=== PATIENT | female | born 1975 | race Caucasian/White ===

== ENCOUNTER 2017-01-20 18:07 | Emergency (ER) | payer MEDICARE, MEDICAID ==
[~2017-01-20] VITALS: Ht 180.3 cm; Wt 113.0 kg
[~2017-01-20 18:07] MED LIST: BUSP5 PO; LORTA5 PO; OMEP20TA39 PO
[2017-01-20 18:12] VITALS: BP 122/82; PULSE 93; RESP 16; TEMP 98.2; O2SAT 98
[2017-01-20] MEDS ORDERED: HYDR-3288 PO (18:21)
[2017-01-20] MEDS ORDERED: OMEP40CA2 PO (18:21)
[2017-01-20] MEDS ORDERED: cholesterol med (18:21)
--- NOTE | 2017-01-20 18:56 | PD ---
HPI Chief Complaint: Cold / Flu Symptoms Time Seen by Provider: 18:23 Travel History International Travel<30 days: No Contact w/Intl Traveler<30days: No Traveled to known affect area: No History of Present Illness HPI 41-year-old female presents to the emergency room for evaluation of nonproductive cough, malaise, and bilateral ear pain. Patient has had cough for the past 2 months. She went to her primary care physician and was put on Tessalon Perles, steroids, and an antibiotic that she believes was amoxicillin and told to follow-up with the casing worker. Patient states she took 500 mg blue tablet once daily for 5 days. States she finished the antibiotic yesterday and steroids today. States she seems to be getting worse. Cough was initially productive but has become nonproductive recently. Patient is concerned because her house recently tested positive for mold. States the mold specialist told her the outside of her house registered as 11 but the inside of her house was over 100. PFSH Past Medical History Asthma: No Autoimmune Disease: No Anxiety: No Depression: Yes Heart Rhythm Problems: No Cancer: No Cardiovascular Problems: No High Cholesterol: Yes Chemotherapy: No Chest Pain: Yes Congestive Heart Failure: No COPD: No Cerebrovascular Accident: No Diabetes: No Diminished Hearing: No Endocrine: Yes Gastrointestinal Disorders: Yes GERD: Yes Glaucoma: No Genitourinary: Yes (MUST SELF CATH DUE TO SEVERE SPINAL DAMAGE) Headaches: Yes Hepatitis: No Hiatal Hernia: No Hypertension: Yes Immune Disorder: No Implanted Vascular Access Dvce: Yes Kidney Stones: Yes Medical other: Yes (ELEVATED CHOLESTEROL/ CHRONIC BACK PAIN rheumatoid arthritis) Musculoskeletal: Yes (DEGENERATIVE DISC DISEASE) Neurologic: Yes (DDD WITH MULTIPLE SURGERIES AND IMPLANTS TO STABILIZE HER SPINE) Psychiatric: No Reproductive: Yes (HYSTERECTOMY R/T CYSTS ON OVARIES) Respiratory: No Immunizations Current: Yes Migraines: Yes Radiation Therapy: No Renal Failure: No Sickle Cell Disease: No Sleep Apnea: No Thyroid Disease: Yes (HYPO BEING WATCHED) Ulcer: No ?: Not : 2 Para: 2 Ovarian Cysts: Yes Past Surgical History Abdominal Surgery: Yes (RIGHT INGUINAL HERNIA) AICD: No Appendectomy: Yes (2003) Arteriovenous Shunt: No Body Medical Devices: SPINAL PORT STIMULATOR ----AND----RODS IN HER SPINE TO SUPPORT IT Cardiac Surgery: No Cholecystectomy: Yes Ear Surgery: No Endocrine Surgery: No Eye Surgery: No Genitourinary Surgery: No Gynecologic Surgery: Yes (HYSTERECTOMY) Hysterectomy: Yes Insulin Pump: No Joint Replacement: Yes (SPINAL RODS ) Oral Surgery: No Pacemaker: No Thoracic Surgery: Yes (TUMOR REMOVED LEFT CHEST) Other Surgery: Yes (APR 02--"SPINAL CORD STIUMULATOR", LEFT UPPER ABD LIPOMA REMOVED) Social History Alcohol Use: No Tobacco Use: No Substance Use: No Allergies-Medications (Allergen,Severity, Reaction): Coded Allergies: diatrizoate meglumine (Unverified Allergy, Severe, IVP DYE HIVES, SOB, ) gadobenic acid (Unverified Allergy, Severe, IVP DYE HIVES, SOB, 01/20/17) gadodiamide (Unverified Allergy, Severe, IVP DYE HIVES, SOB, 01/20/17) gadoteridol (Unverified Allergy, Severe, IVP DYE HIVES, SOB, 01/20/17) hydromorphone (Unverified Allergy, Severe, HIVES, 01/20/17) iodixanol (Unverified Allergy, Severe, IVP DYE HIVES, SOB, 01/20/17) iohexol (Unverified Allergy, Severe, IVP DYE HIVES, SOB, 01/20/17) shellfish derived (Unverified Allergy, Severe, SWELLING, 01/20/17) Reported Meds & Prescriptions Reported Meds & Active Scripts Active Reported [cholesterol med] [place] (Hydrocodone-Acetaminophen) 7.5-325 mg Tab 2 Tab PO Q4H PRN Omeprazole 40 Mg Cap 40 Mg PO DAILY Hydrocodone/Acetaminophen 5 mg/325 mg 1 Tab 1 Tab PO BID PRN Buspar 5 Mg Tab (Buspirone HCl) 5 Mg Tab 5 Mg PO TID Hm Omeprazole (Omeprazole) 20 Mg Tab 40 Mg PO BID Review of Systems Except as stated in HPI: all other systems reviewed are Neg Physical Exam Narrative GENERAL: Well-nourished, well-developed female in no acute distress. Afebrile. Ambulatory. Coughing frequently in the emergency room. SKIN: Focused skin assessment warm/dry. HEAD: Normocephalic. EYES: No scleral icterus. No injection or drainage. ENT: Mucosa pink and moist. Mild erythema of pharynx without significant edema or exudates. No uvular edema. No uvular, palatal, or tonsillar deviation. Airway patent. Nasal turbinates appear normal without nasal blood, purulent drainage or septal hematoma. EARS: Bilateral pinnae and external canals appear within normal limits. Bilateral tympanic membranes without erythema or perforation. There is bilateral dullness. NECK: Supple, trachea midline. No JVD or lymphadenopathy. CARDIOVASCULAR: Regular rate and rhythm without murmurs, gallops, or rubs. RESPIRATORY: Breath sounds equal bilaterally. No accessory muscle use. No crackles, rales, wheezes, or rhonchi. Data Data Last Documented VS Vital Signs Date Time Temp Pulse Resp B/P (MAP) Pulse Ox O2 Delivery O2 Flow Rate FiO2 01/20/17 18:12 98.2 93 16 122/82 (95) 98 Orders Orders Chest, Pa & Lat (01/20/17 ) [facility] Medical Decision Making Medical Screen Exam Complete: Yes Emergency Medical Condition: Yes Medical Record Reviewed: Yes Differential Diagnosis Bronchitis, pneumonia, fungal infection Narrative Course 41-year-old female presents to the emergency room for evaluation of chronic cough for the past 2 months. Patient just finished a course of antibiotics and steroids but reports worsening of symptoms. She believes the antibiotic was amoxicillin but reports the pills were 500 mg oval, blue tablets that she took once daily for 5 days; perhaps Flagyl? Cough is nonproductive. No fevers or chills. She is afebrile and well-appearing in the emergency room. Vital signs stable. Pulse ox 98% on room air. Coughing frequently but it is nonproductive. Lung sounds clear and equal bilaterally. Dullness to bilateral tympanic membranes but no evidence of acute infection. Patient is concerned because her house recently tested very high for mold spores. Chest x-ray shows no cardiopulmonary disease. I see no indication for more antibiotics at this time. Patient was told to follow-up with the casing worker. She'll be discharged with prescription for guaifenesin with codeine and told to take over- the-counter Zyrtec and omeprazole to account for other possible causes chronic cough. She understands and agrees to plan. Diagnosis Primary Impression: Chronic cough Additional Instructions: Rest and drink plenty of fluids. Take cough medication at night, as needed for cough. This medication will make you drowsy. Take Zyrtec and omeprazole as directed on the box. Follow-up with a primary care physician and casing worker. Spend least amount of time as possible in house until mold is cleared. Return to the emergency room for worsening symptoms. Disposition: 01 DISCHARGE HOME Condition: Stable Anneliese Hurtado Jan 20, 2017 18:56
--- NOTE | 2017-01-20 19:01 | RADRPT ---
EXAM DATE/TIME: 01/20/2017 18:48 [facility] COMPARISON: CHEST SINGLE AP, December 19, 2013, 13:50. INDICATIONS : Cough for several months. MEDICAL HISTORY : Hypercholesterolemia. Hypertension. migraines, ovarian cysts. SURGICAL HISTORY : Appendectomy. Cholecystectomy.Hysterectomy.Spinal rods, spinal stimulator, right inguinal hernia repa ir, tumor rmoved from left chest. ENCOUNTER: Initial ACUITY: 3 months PAIN SCORE: 2/10 LOCATION: Bilateral chest FINDINGS: PA and lateral views of the chest demonstrate the lungs to be symmetrically aerated without evidence of mass, infiltrate or effusion. The cardiomediastinal contours are unremarkable. Osseous structure s are intact. CONCLUSION: No evidence of acute cardiopulmonary disease. Michael Hays MD on January 20, 2017 at 19:00 Board Certified Radiologist. This report was verified electronically.
[2017-01-20] MEDS ORDERED: CETI10 PO (19:29)
[2017-01-20] MEDS ORDERED: GUAI100S5 PO (19:29)
== END 2017-01-20 19:57 | disposition home or self-care (01) ==
LOC: PHEFT 18:07
DX: R05 Cough (principal); R53.81 Other malaise; H92.03 Otalgia, bilateral; I10 Essential (primary) hypertension; E07.9 Disorder of thyroid, unspecified; E78.00 Pure hypercholesterolemia, unspecified; Z86.59 Personal history of other mental and behavioral disorders; Z87.19 Personal history of other diseases of the digestive system; Z87.448 Personal history of other diseases of urinary system; Z87.39 Personal history of other diseases of the musculoskeletal system and connective tissue; Z86.69 Personal history of other diseases of the nervous system and sense organs
CPT/HCPCS: 71020; 99283